=== PATIENT | female | born 1985 | race African-American/Black ===

== ENCOUNTER 2017-10-31 20:51 | Emergency (ER) | payer MEDICAID ==
[~2017-10-31] VITALS: Ht 167.6 cm; Wt 66.0 kg
[2017-10-31 21:18] VITALS: BP 120/92
== END 2017-10-31 23:59 | disposition home or self-care (01) ==
LOC: ER 20:51
DX: S40.022A Contusion of left upper arm, initial encounter (principal); V43.52XA Car driver injured in collision with other type car in traffic accident, initial encounter; W22.11XA Striking against or struck by driver side automobile airbag, initial encounter; Y93.89 Activity, other specified; Y92.488 Other paved roadways as the place of occurrence of the external cause
CPT/HCPCS: 99283